=== PATIENT | female | born 1990 | race Native Hawaiian/Other Pacific Islander ===

== ENCOUNTER 2017-01-09 19:48 | Emergency (ER) | payer OTHER ==
[~2017-01-09] VITALS: Ht 162.6 cm; Wt 68.0 kg
[2017-01-09 20:42] VITALS: BP 137/84; TEMP 98.4
== END 2017-01-09 20:48 | disposition home or self-care (01) ==
LOC: ED 19:48
DX: S70.261A Insect bite (nonvenomous), right hip, initial encounter (principal); L03.115 Cellulitis of right lower limb; W57.XXXA Bitten or stung by nonvenomous insect and other nonvenomous arthropods, initial encounter; Y92.098 Other place in other non-institutional residence as the place of occurrence of the external cause
CPT/HCPCS: 36415; 43754; 96361; 96366; 96374; 96375; 99282; 99292